=== PATIENT | male | born 1995 | race Caucasian/White ===

== ENCOUNTER → 2017-10-14 | Outpatient (CLI) | payer BC | LOC: COL.RAD 08:03 | DX: K80.50 Calculus of bile duct without cholangitis or cholecystitis without obstruction (principal) ==

== ENCOUNTER → 2018-01-18 | Outpatient (CLI) | payer BC | LOC: COL.RAD 11:34 | DX: R10.11 Right upper quadrant pain (principal) | CPT/HCPCS: A9537; J2270; J2805 ==

== ENCOUNTER 2018-02-01 14:43 | Day surgery (SDC) | payer BC ==
[~2018-02-01] VITALS: Ht 154.9 cm; Wt 73.9 kg
[2018-02-01 15:03] VITALS: BP 107/82; PULSE 92; TEMP 97.9
[2018-02-01 17:08] VITALS: BP 103/64; PULSE 93
[2018-02-01 17:23] VITALS: BP 94/73; PULSE 86
[2018-02-01 17:38] VITALS: BP 114/75; PULSE 78
== END 2018-02-01 18:03 | disposition home or self-care (01) ==
LOC: SDCO 14:43
DX: R19.7 Diarrhea, unspecified (principal); K21.9 Gastro-esophageal reflux disease without esophagitis; R10.13 Epigastric pain; R11.0 Nausea; Z83.71 Family history of colonic polyps; Z83.79 Family history of other diseases of the digestive system
CPT/HCPCS: J2250; J3010; J7030